=== PATIENT | male | born 1935 | race Caucasian/White ===

== ENCOUNTER 2018-09-01 08:30 | Day surgery (SDC) | payer MEDICARE, BC ==
[2018-09-01] VITALS (14 sets, daily range): BP systolic 132–159; BP diastolic 60–84
[~2018-09-01] VITALS: Ht 157.5 cm; Wt 79.9 kg
[2018-09-01] MEDS ORDERED: normal saline 1000ml 1,000 ML IV SCH (08:55)
[2018-09-01] MEDS ORDERED: AMLO5TAB PO (09:10)
[2018-09-01] MEDS ORDERED: ACET-2119 PO (09:10)
[2018-09-01] MEDS ORDERED: LISI-604 PO (09:10)
[2018-09-01] MEDS ORDERED: ATOR10TA70 PO (09:10)
[2018-09-01] MEDS ORDERED: [UNRECOGNIZED DRUG - OTHER] PO (09:10)
[2018-09-01] MEDS ORDERED: CHOL10002 PO (09:10)
[2018-09-01] MEDS ORDERED: LANS30CA56 PO (09:10)
[2018-09-01] MEDS ORDERED: POTA10TA19 PO (09:10)
[2018-09-01] MEDS ORDERED: FOLI1TAB16 PO (09:10)
[2018-09-01 09:26] LABS: BASOPHILS # (AUTO) 0.1 X10'3 (0-0.2); BASOPHILS % (AUTO) 1.1 % (0-1); EOSINOPHILS # (AUTO) 0.4 X10'3 (0-0.9); EOSINOPHILS % (AUTO) 7.2 % (0-6); HEMOGLOBIN 14.6 g/dl (14.0-17.9); LYMPHOCYTES # (AUTO) 1.3 X10'3 (1.1-4.8); LYMPHOCYTES % (AUTO) 24.3 % (21-51); MEAN CORPUSCULAR HEMOGLOBIN 30.9 PG (27.0-31.0); MEAN CORPUSCULAR HGB CONC 33.9 g/dL (33.0-36.5); MEAN PLATELET VOLUME 8.2 FL (7.4-10.4); MONOCYTES # (AUTO) 0.5 X10'3 (0-0.9); MONOCYTES % (AUTO) 9.5 % (2-12); NEUTROPHILS # (AUTO) 3.1 X10'3 (1.8-7.7); NEUTROPHILS % (AUTO) 57.9 % (42-75); PLATELET COUNT 168 X10'3 (140-440); RED BLOOD COUNT 4.72 X10'6 (4.70-6.10); RED CELL DISTRIBUTION WIDTH 13.2 % (11.5-14.5); WHITE BLOOD COUNT 5.3 X10'3 (4.5-11.0)
[2018-09-01 09:35] LABS: ALBUMIN 3.7 G/DL (3.4-5.0); ANION GAP 9 (8-16); BLOOD UREA NITROGEN 19 MG/DL (7-18); BUN/CREATININE RATIO 12.8 (5.4-32.0); CALCIUM 9.1 MG/DL (8.5-10.1); CHLORIDE 107 MMOL/L (99-107); CREATININE 1.48 MG/DL (0.60-1.10); GLUCOSE 102 MG/DL (70-104); POTASSIUM 3.8 MMOL/L (3.5-5.1); SODIUM 143 MMOL/L (135-145); TOTAL CARBON DIOXIDE 27.3 MMOL/L (24-32); eGFR 45 ML/MIN
[2018-09-01] MEDS ORDERED: midazolam 2 mg/2 ml injection IV PRN (09:35)
[2018-09-01] MEDS ORDERED: LIDOcaine 1%/PF 5ML 10 MG/ML VIAL SQ ONE (09:35)
[2018-09-01] MEDS ORDERED: fentaNYL/PF 50MCG/1 ML 2ML syringe IV PRN (09:35)
[2018-09-01] MEDS ORDERED: sodium chloride 0.45% 1,000 ML IV SCH (09:40)
[2018-09-01] MEDS ORDERED: LIDOcaine 1%/PF 5ML 10 MG/ML VIAL ONE (10:25)
[2018-09-01] MEDS ORDERED: fentaNYL/PF 50MCG/1 ML 2ML syringe ONE (10:25)
[2018-09-01] MEDS ORDERED: midazolam 2 mg/2 ml injection ONE (10:25)
== END 2018-09-01 14:30 | disposition home or self-care (01) ==
LOC: SSTAY O 08:30
PROVIDERS: ATTEND Radiology Diagnostic Radiology
DX: C34.12 Malignant neoplasm of upper lobe, left bronchus or lung (principal); I10 Essential (primary) hypertension; E78.5 Hyperlipidemia, unspecified; Z79.01 Long term (current) use of anticoagulants; Z85.46 Personal history of malignant neoplasm of prostate
CPT/HCPCS: 32405; 36415; 71045; 77012; 80048; 85025; 85610; J2001; J2250; J3010; J7030

== ENCOUNTER 2018-09-08 14:53 | Outpatient (CLI) | payer MEDICARE, BC ==
[~2018-09-08 14:53] MED LIST: ACET-2119 PO; AMLO5TAB PO; ATOR10TA70 PO; CHOL10002 PO; FOLI1TAB16 PO; LANS30CA56 PO; LISI-604 PO; POTA10TA19 PO; [UNRECOGNIZED DRUG - OTHER] PO
== END 2018-09-08 23:59 | disposition home or self-care (01) ==
LOC: CARD DIAG 14:53
PROVIDERS: ATTEND Internal Medicine Hematology & Oncology
DX: C34.00 Malignant neoplasm of unspecified main bronchus (principal); I10 Essential (primary) hypertension; Z85.46 Personal history of malignant neoplasm of prostate
CPT/HCPCS: 93306